=== PATIENT | male | born 1985 | race Caucasian/White ===

== ENCOUNTER 2018-09-01 15:15 | Emergency (ER) | payer OTHER ==
--- NOTE | 2018-09-01 15:36 | ED Physician Documentation ---
PD HPI UPPER EXT INJURY - Stated complaint Stated Complaint: R HAND INJ - Chief complaint Chief Complaint: Ext Problem - History obtained from History obtained from: Patient - History of Present Illness Location: Right (He punched the floor 2 days ago and has hand pain from it. He actually went to a [place] clinic today and was diagnosed with fifth metacarpal fracture but was placed only in a Velcro splint and told to come here for more durable immobilization. He was not given a copy of the x-rays.) Review of Systems Constitutional: reports: Reviewed and negative Cardiac: reports: Reviewed and negative Respiratory: reports: Reviewed and negative PD PAST MEDICAL HISTORY - Present Medications Home Medications: Ambulatory Orders Medication Instructions Recorded Confirmed Anxiety Pills 09/01/18 - Allergies Allergies/Adverse Reactions: Allergies Allergy/AdvReac Type Severity Reaction Status Date / Time No Known Drug Allergies Allergy Verified 09/01/18 15:21 PD ED PE NORMAL - Vitals Vital signs reviewed: Yes - General General: Alert and oriented X 3, No acute distress - Extremities Extremities: Other (Right hand is tender and swollen but without deformity in the area of the fifth metacarpal, no raised rotational deformity of the pinky and no loss of saccade.) - Neuro Neuro: Alert and oriented X 3, Normal speech Results - Vitals Vitals: Vital Signs - 24 hr 09/01/18 15:18 Temperature 36.6 C Heart Rate 92 Respiratory 18 Rate Blood Pressure 157/100 H O2 Saturation 99 Oxygen O2 Source Room air Departure - Departure Disposition: 01 Home, Self Care Clinical Impression: Fracture of fifth metacarpal bone Condition: Good Record reviewed to determine appropriate education?: Yes Instructions: ED Fx Hand Closed Follow-Up: [facility] [Provider Group] - Within 1 week Comments: Tylenol as needed for pain. Keep the splint on and dry, do not remove it. Return for new or worsening symptoms. Call the orthopedics office for an appointment within the week. Your blood pressure was elevated today on check into the emergency department. This does not mean that you have hypertension, it is a common phenomenon to come to the emergency department and have elevated blood pressure. I recommend that you see your primary care physician within the week to have it rechecked when you are feeling better.
--- NOTE | 2018-09-01 16:16 | XRAY Report ---
Reason: hand inj Procedure Date: 09/01/2018 Accession Number: [id number] / [id number] Procedure: XR - Hand 3 View RT CPT Code: FULL RESULT: EXAM: RIGHT HAND RADIOGRAPHY EXAM DATE: 09/01/2018 03:46 PM. CLINICAL HISTORY: Hand injury. COMPARISON: None. TECHNIQUE: 3 views. FINDINGS: Bones: Fracture of the fifth metacarpal diaphysis, apex volar angulation of the distal fragment. Joints: Normal. No subluxations. Soft Tissues: Normal. No soft tissue swelling. IMPRESSION: Fifth metacarpal fracture. [facility]
[2018-09-01 16:18] VITALS: BP 151/89
== END 2018-09-01 16:18 | disposition home or self-care (01) ==
LOC: ED 15:15
DX: S62.306A Unspecified fracture of fifth metacarpal bone, right hand, initial encounter for closed fracture (principal); W22.09XA Striking against other stationary object, initial encounter; R03.0 Elevated blood-pressure reading, without diagnosis of hypertension
CPT/HCPCS: 99282; 99283